=== PATIENT | female | born 1960 | race Caucasian/White ===

== ENCOUNTER 2018-01-26 19:01 | Emergency (ER) | payer BC ==
[2018-01-26] MEDS: ONDANSETRON 4 MG ORAL DISINTEGRATING TAB (Q0162 PER 1MG) PO (20:30)
== END 2018-01-26 20:33 | disposition home or self-care (01) ==
LOC: M ED 19:01
DX: K52.9 Noninfective gastroenteritis and colitis, unspecified (principal)
CPT/HCPCS: Q0162

== ENCOUNTER → 2018-01-26 | Outpatient (CLI) | payer BC ==
[~2018-01-26] MED LIST: GASTROGRAFIN SOLUTION 30ML (Q9963) As Ordered; ISOVUE-370 76% 100ML VIAL (Q9967) As Ordered
== END ==
LOC: M RAD 15:30
DX: R10.31 Right lower quadrant pain (principal); R53.83 Other fatigue
CPT/HCPCS: Q9963

== ENCOUNTER → 2018-01-26 | Outpatient (REF) | payer BC ==
[2018-01-26 16:36] LABS: BASO % 0.3 % (0.0-1.0); EOS # 0.1 10^3/uL (0.0-0.50); EOS % 0.7 % (0.0-3.0); HEMATOCRIT 39.5 % (36.0-47.0); HEMOGLOBIN 13.2 g/dl (12.0-15.5); IMMATURE GRANULOCYTE % 0.3 % (0-3.0); LYMPH # 1.4 10^3/uL (1.5-4.5); LYMPH % 11.7 % (24.0-44.0); MEAN CORPUSCULAR HGB CONC 33.4 g/dl (32.0-36.5); MEAN CORPUSCULAR VOLUME 86.8 fl (80.0-96.0); MONO # 0.5 10^3/uL (0.0-0.8); MONO % 4.6 % (0.0-5.0); NEUTROPHILS # 9.6 10^3/uL (1.8-7.7); NEUTROPHILS % 82.4 % (36.0-66.0); PLATELET COUNT, AUTOMATED 201 10^3/uL (150-450); RED BLOOD COUNT 4.55 10^6/uL (4.00-5.40); RED CELL DISTRIBUTION WIDTH 12.5 % (11.5-14.5); WHITE BLOOD COUNT 11.7 10^3/uL (4.0-10.0)
[2018-01-26 17:46] LABS: TOTAL 25(OH) VITAMIN D 13.8 NG/ML (30.0-100.0)
[2018-01-26 17:47] LABS: FOLATE 19.5 NG/ML; VITAMIN B12 LEVEL 825 PG/ML
[2018-01-26 17:51] LABS: ALBUMIN 3.9 GM/DL (3.2-5.2); ALKALINE PHOSPHATASE 101 U/L (45-117); ALT/SGPT 39 U/L (12-78); ANION GAP 9 MEQ/L (8-16); AST/SGOT 26 U/L (7-37); BILIRUBIN,TOTAL 0.5 MG/DL (0.2-1.0); BLOOD UREA NITROGEN 11 MG/DL (7-18); CALCIUM LEVEL 8.4 MG/DL (8.5-10.1); CARBON DIOXIDE LEVEL 26 MEQ/L (21-32); CHLORIDE LEVEL 104 MEQ/L (98-107); CHOLESTEROL LEVEL 187 MG/DL (<200); CHOLESTEROL RISK RATIO 3.016 (<5); CREATININE FOR GFR 0.74 MG/DL (0.55-1.30); GLOMERULAR FILTRATION RATE > 60.0 (>51); GLUCOSE, FASTING 81 MG/DL (70-100); HDL CHOLESTEROL 62 MG/DL (>40); LDL CHOLESTEROL 96.4 MG/DL (<100); LIPASE 231 U/L (73-393); NON-HDL-C 125 MG/DL; POTASSIUM SERUM 4.3 MEQ/L (3.5-5.1); SODIUM LEVEL 139 MEQ/L (136-145); THYROID STIMULATING HORMONE 0.517 uIU/ML (0.358-3.740); TOTAL PROTEIN 7.8 GM/DL (6.4-8.2); TRIGLYCERIDES LEVEL 143 MG/DL (<150)
== END ==
LOC: M SFHCCAPE 13:32
DX: R53.83 Other fatigue (principal); R10.84 Generalized abdominal pain; Z13.6 Encounter for screening for cardiovascular disorders

== ENCOUNTER → 2018-02-02 | Outpatient (CLI) | payer BC ==
[2018-02-02 17:38] LABS: FREE T4 0.95 NG/DL (0.76-1.46)
== END ==
LOC: M LAB 16:39
DX: R53.1 Weakness (principal)
CPT/HCPCS: 84443

== ENCOUNTER → 2018-02-24 | Day surgery (SDC) | payer BC ==
[~2018-02-24] MED LIST changes: -GASTROGRAFIN SOLUTION 30ML (Q9963) As Ordered; -ISOVUE-370 76% 100ML VIAL (Q9967) As Ordered; +LIDOCAINE 2% MDV 20 ML VIAL As Ordered; +PROPOFOL 200 MG/20 ML VIAL As Ordered
[2018-02-24] MEDS: NS 1,000 ML IV (11:53)
== END | disposition home or self-care (01) ==
LOC: M OPP 11:24
DX: K51.50 Left sided colitis without complications (principal); R10.31 Right lower quadrant pain; K62.1 Rectal polyp; R19.7 Diarrhea, unspecified; K59.00 Constipation, unspecified; R06.83 Snoring; R06.00 Dyspnea, unspecified; R63.0 Anorexia; Z78.0 Asymptomatic menopausal state; Z79.899 Other long term (current) drug therapy
CPT/HCPCS: 45385

== ENCOUNTER → 2018-11-11 | Outpatient (REF) | payer BC ==
[~2018-11-11] MED LIST changes: +ALLE24TA7 PO; -LIDOCAINE 2% MDV 20 ML VIAL As Ordered; -PROPOFOL 200 MG/20 ML VIAL As Ordered; +ZOFR4TAB14 PO
== END ==
LOC: M SFHCCAPE 11:54
PROVIDERS: ATTEND Physician Assistant
DX: Z53.9 Procedure and treatment not carried out, unspecified reason (principal); R10.9 Unspecified abdominal pain

== ENCOUNTER → 2018-11-11 | Outpatient (CLI) | payer BC ==
[~2018-11-11] MED LIST changes: +GASTROGRAFIN SOLUTION 30ML (Q9963) As Ordered ONE; +ISOVUE-370 76% 100ML VIAL (Q9967) As Ordered ONE
[2018-11-11 13:49] LABS: BASO % 0.9 % (0.0-1.0); EOS % 0.9 % (0.0-3.0); HEMATOCRIT 42.2 % (36.0-47.0); LYMPH # 1.1 10^3/uL (1.5-4.5); LYMPH % 31.3 % (24.0-44.0); MEAN CORPUSCULAR HGB CONC 33.2 g/dl (32.0-36.5); MEAN CORPUSCULAR VOLUME 87.6 fl (80.0-96.0); MONO # 0.6 10^3/uL (0.0-0.8); MONO % 17.8 % (0.0-5.0); NEUTROPHILS # 1.7 10^3/uL (1.8-7.7); NEUTROPHILS % 49.1 % (36.0-66.0); PLATELET COUNT, AUTOMATED 162 10^3/uL (150-450); RED BLOOD COUNT 4.82 10^6/uL (4.00-5.40); WHITE BLOOD COUNT 3.4 10^3/uL (4.0-10.0)
[2018-11-11 13:51] LABS: APPEARANCE, URINE CLOUDY (CLEAR); BACTERIA, URINE AUTO NEGATIVE (NEGATIVE); BILIRUBIN, URINE AUTO NEGATIVE (NEGATIVE); BLOOD, URINE BLOOD NEGATIVE (NEGATIVE); COLOR, URINE YELLOW (YELLOW); GLUCOSE, URINE (UA) AUTO NEGATIVE (NEGATIVE); KETONE, URINE AUTO 1+ mg/dL (NEGATIVE); LEUKOCYTE ESTERASE, URINE AUTO TRACE (NEGATIVE); MUCUS, URINE SMALL (NEGATIVE); NITRITE, URINE AUTO NEGATIVE (NEGATIVE); PROTEIN, URINE AUTO NEGATIVE (NEGATIVE); RBC, URINE AUTO 1 /HPF (0-3); SPECIFIC GRAVITY URINE AUTO 1.027 (1.002-1.035); SQUAMOUS EPITHELIAL CELL UR AU 13 /HPF (0-6); TRANSITIONAL EPITHELIAL AUTO 1 /HPF; UROBILINOGEN, URINE AUTO 0.2 mg/dL (0.0-2.0); WBC, URINE AUTO 8 /HPF (0-3)
[2018-11-11 14:13] LABS: ALBUMIN 3.8 GM/DL (3.2-5.2); ALT/SGPT 38 U/L (12-78); BILIRUBIN,TOTAL 0.4 MG/DL (0.2-1.0); BLOOD UREA NITROGEN 16 MG/DL (7-18); CALCIUM LEVEL 9.1 MG/DL (8.5-10.1); CARBON DIOXIDE LEVEL 29 MEQ/L (21-32); CHLORIDE LEVEL 104 MEQ/L (98-107); CREATININE FOR GFR 0.84 MG/DL (0.55-1.30); GLOMERULAR FILTRATION RATE > 60.0 (>51); GLUCOSE, FASTING 91 MG/DL (70-100); LIPASE 220 U/L (73-393); POTASSIUM SERUM 3.9 MEQ/L (3.5-5.1); SODIUM LEVEL 136 MEQ/L (136-145); TOTAL PROTEIN 8.1 GM/DL (6.4-8.2)
--- NOTE | 2018-11-11 16:15 | REP ---
CT of the abdomen pelvis without IV or bowel contrast: Comparison is 01/26/2018. There is minor atelectasis in the visualized lower lobe of the right lung. The liver, gallbladder, pancreas, spleen, adrenals, kidneys, and abdominal aorta are unremarkable. There is no adenopathy, mass or ascites. There is no bowel distension or obstruction. The Pelvis: The appendix is unremarkable. The uterus and adnexa are unremarkable. Bladder is unremarkable. The pelvic bowel loops are unremarkable. Impression: Essentially negative CT scan of the abdomen and pelvis except for minor atelectasis in the lower lobe of the right lung. Electronically Signed by Adan Ram MD 11/11/2018 04:07 P
== END ==
LOC: M LAB 13:13
PROVIDERS: ATTEND Physician Assistant
DX: R10.9 Unspecified abdominal pain (principal); J98.11 Atelectasis
CPT/HCPCS: 74177; 80053; 81001; 83690; 85025; 87086; Q9963; Q9967

== ENCOUNTER 2019-01-14 09:17 | Day surgery (SDC) | payer BC ==
[~2019-01-14] VITALS: Ht 165.1 cm; Wt 83.9 kg
[~2019-01-14 09:17] MED LIST changes: -GASTROGRAFIN SOLUTION 30ML (Q9963) As Ordered ONE; -ISOVUE-370 76% 100ML VIAL (Q9967) As Ordered ONE; +NS 1,000 ML IV ONE
[2019-01-14] MEDS ORDERED: LIDOCAINE 2% INJ 100 MG/5 ML SDV (FOR ANES.) As Ordered ONE (10:19)
[2019-01-14] MEDS ORDERED: PROPOFOL 200 MG/20 ML VIAL As Ordered ONE (10:19)
[2019-01-14] MEDS ORDERED: fentaNYL 100 MCG/2 ML INJECTION (J3010) As Ordered ONE (10:21)
--- NOTE | 2019-01-14 11:19 | ROOR ---
Patient Name: Cassie Medina Procedure Date: 01/14/2019 10:49 AM Date of : 1960 Age: 58 Room: [facility] Gender: Female Note Status: Finalized Procedure: Upper GI endoscopy Indications: Dyspepsia, Dysphagia Providers: Maximiliano Dias MD Referring MD: SHADY Shabazz [id number] Requesting Provider: Medicines: Monitored Anesthesia Care Complications: No immediate complications. Procedure: Pre-Anesthesia Assessment: - Prior to the procedure, a History and Physical was performed, and patient medications and allergies were reviewed. The patient is competent. The risks and benefits of the procedure and the sedation options and risks were discussed with the patient. All questions were answered and informed consent was obtained. Patient identification and proposed procedure were verified by the physician, the nurse and the anesthesiologist in the procedure room. Mental Status Examination: alert and oriented. Airway Examination: normal oropharyngeal airway and neck mobility. Respiratory Examination: clear to auscultation. CV Examination: normal. Prophylactic Antibiotics: The patient does not require prophylactic antibiotics. Prior Anticoagulants: The patient has taken no previous anticoagulant or antiplatelet agents. ASA Grade Assessment: II - A patient with mild systemic disease. After reviewing the risks and benefits, the patient was deemed in satisfactory condition to undergo the procedure. The anesthesia plan was to use monitored anesthesia care (MAC). Immediately prior to administration of medications, the patient was re-assessed for adequacy to receive sedatives. The heart rate, respiratory rate, oxygen saturations, blood pressure, adequacy of pulmonary ventilation, and response to care were monitored throughout the procedure. The physical status of the patient was re-assessed after the procedure. The Endoscope was introduced through the mouth, and advanced to the second part of duodenum. The upper GI endoscopy was accomplished without difficulty. The patient tolerated the procedure well. Findings: The examined esophagus was normal. Biopsies were obtained from the proximal and distal esophagus with cold forceps for histology of suspected eosinophilic esophagitis. Verification of patient identification for the specimen was done by the physician and nurse using the patient's name, date and medical record number. Estimated blood loss was minimal. Scattered moderate inflammation characterized by erythema and granularity was found in the gastric body and in the gastric antrum. Biopsies were taken with a cold forceps for Helicobacter pylori testing. The duodenal bulb and second portion of the duodenum were normal. Biopsies for histology were taken with a cold forceps for evaluation of celiac disease. Impression: - Normal esophagus. Biopsied. - Gastritis. Biopsied. - Normal duodenal bulb and second portion of the duodenum. Biopsied. Recommendation: - Patient has a contact number available for emergencies. The signs and symptoms of potential delayed complications were discussed with the patient. Return to normal activities tomorrow. Written discharge instructions were provided to the patient. - Resume previous diet. - Use Prilosec (omeprazole) 40 mg PO daily for 6 weeks. - Await pathology results. - Telephone GI clinic for pathology results in 1 week. - Return to primary care physician as previously scheduled. Maximiliano Dias MD Maximiliano Dias MD 01/14/2019 11:18:17 AM Electronically signed by Maximiliano Dias MD Number of Addenda: 0 Note Initiated On: 01/14/2019 10:49 AM Estimated Blood Loss: Estimated blood loss was minimal.
[2019-01-14 11:20] VITALS: BP 135/82
== END 2019-01-14 11:33 | disposition home or self-care (01) ==
LOC: M OPP 09:17
PROVIDERS: ATTEND Internal Medicine Gastroenterology
DX: K29.70 Gastritis, unspecified, without bleeding (principal); R13.10 Dysphagia, unspecified; R10.13 Epigastric pain
CPT/HCPCS: 43239; 88305; J3010

== ENCOUNTER 2019-01-21 07:24 | Day surgery (SDC) | payer BC ==
[~2019-01-21] VITALS: Ht 165.1 cm; Wt 84.8 kg
[~2019-01-21 07:24] MED LIST changes: +LR 1,000 ML IV ONE; -NS 1,000 ML IV ONE
[2019-01-21] MEDS ORDERED: PRIL20TA2 PO (07:55)
[2019-01-21 07:59] LABS: HEMATOCRIT 40.1 % (36.0-47.0); HEMOGLOBIN 13.5 g/dl (12.0-15.5); MEAN CORPUSCULAR HEMOGLOBIN 30.3 pg (27.0-33.0); MEAN CORPUSCULAR HGB CONC 33.7 g/dl (32.0-36.5); MEAN CORPUSCULAR VOLUME 89.9 fl (80.0-96.0); PLATELET COUNT, AUTOMATED 178 10^3/uL (150-450); RED BLOOD COUNT 4.46 10^6/uL (4.00-5.40); WHITE BLOOD COUNT 5.2 10^3/uL (4.0-10.0)
[2019-01-21] MEDS ORDERED: PROPOFOL 200 MG/20 ML VIAL As Ordered ONE (08:00)
[2019-01-21] MEDS ORDERED: MIDAZOLAM INJ 2 MG/2 ML VIAL (J2250) As Ordered ONE (08:00)
[2019-01-21] MEDS ORDERED: fentaNYL 250 MCG/5 ML INJECTION (J3010) As Ordered ONE (08:00)
[2019-01-21] MEDS ORDERED: LIDOCAINE 2% INJ 100 MG/5 ML SDV (FOR ANES.) As Ordered ONE (08:01)
[2019-01-21] MEDS ORDERED: ROCURONIUM BROMIDE 50 MG/5 ML VIAL As Ordered ONE (08:01)
[2019-01-21] MEDS ORDERED: KETOROLAC 60 MG/2 ML VIAL (J1885) As Ordered ONE (08:01)
[2019-01-21] MEDS ORDERED: dexameTHASONE 4 MG/ML 1ML VIAL (J1100) As Ordered ONE (08:01)
[2019-01-21] MEDS ORDERED: ONDANSETRON 4MG/2ML VIAL (J2405) As Ordered ONE (08:01)
[2019-01-21] MEDS ORDERED: SUGAMMADEX SODIUM 500 MG/5 ML VIAL (BRIDION) As Ordered ONE (08:01)
[2019-01-21] MEDS ORDERED: BUPIVACAINE/EPIN 0.25% 30 ML VIAL As Ordered ONE (08:04)
[2019-01-21 08:15] LABS: BLOOD UREA NITROGEN 13 MG/DL (7-18); CALCIUM LEVEL 8.9 MG/DL (8.5-10.1); CARBON DIOXIDE LEVEL 31 MEQ/L (21-32); CHLORIDE LEVEL 107 MEQ/L (98-107); CREATININE FOR GFR 0.82 MG/DL (0.55-1.30); GLOMERULAR FILTRATION RATE > 60.0 (>51); GLUCOSE, FASTING 99 MG/DL (70-100); POTASSIUM SERUM 4.3 MEQ/L (3.5-5.1); SODIUM LEVEL 141 MEQ/L (136-145)
[2019-01-21] MEDS ORDERED: MEPERIDINE INJ 25 MG/ML VIAL (J2175) As Ordered ONE (10:14)
[2019-01-21] MEDS ORDERED: MEPERIDINE INJ 25 MG/ML VIAL (J2175) IV ONE ×3 (10:30→12:45)
[2019-01-21] MEDS ORDERED: fentaNYL 100 MCG/2 ML INJECTION (J3010) IV PRN (10:30)
[2019-01-21] MEDS ORDERED: ONDANSETRON 4MG/2ML VIAL (J2405) IV PRN (10:30)
[2019-01-21] MEDS ORDERED: LR 1,000 ML IV SCH (10:30)
[2019-01-21] MEDS ORDERED: oxyCODONE 5MG TAB PO PRN (10:30)
[2019-01-21] MEDS ORDERED: NORCO, ANEXSIA 5/325MG TABLET (HYDROcodone/ACETAMINOPHEN) PO PRN (10:30)
[2019-01-21] MEDS ORDERED: ACETAMINOPHEN 1000MG 100ML IV BTL (OFIRMEV) (J0131 PER 10MG) As Ordered ONE (10:49)
[2019-01-21 13:44] VITALS: BP 112/66
--- NOTE | 2019-01-22 16:55 | ECGEPIP ---
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
--- NOTE | 2019-01-24 09:08 | RO ---
DATE OF PROCEDURE: 01/21/2019 PREOPERATIVE DIAGNOSIS: Biliary dyskinesia. POSTOPERATIVE DIAGNOSIS: Biliary dyskinesia. PROCEDURE: Laparoscopic cholecystectomy. SURGEON: Dr. Adan Sosa. SOLAR APPLICATIONS DEVELOPMENT ENGINEER: None. ANESTHESIA: General. ESTIMATED BLOOD LOSS: 5. COMPLICATIONS: None. INDICATIONS FOR PROCEDURE: The patient is a 58-year-old female who presents with right upper quadrant abdominal pain found have a biliary dyskinesia. Recommendation is to proceed with laparoscopic possible open cholecystectomy. Risks and benefits of the procedure not limited to but including bleeding, infection, hernia formation, damage to surrounding structures, need for further surgery were discussed in detail with the patient. Informed was obtained and procedure was planned. PROCEDURE: The patient was brought back to operating room six. After sufficient sedation, the abdomen was sterilely prepped and draped. Next time-out was done. Following that, a stab incision was made in the left lower quadrant. Veress needle was inserted and the abdomen was insufflated to 15 mmHg. Next the 5 mm supraumbilical incision was made and a 5 mm OptiView port was used to gain access to the abdomen. Once the abdomen was entered, Veress needle site was examined. There were no signs of any injury. Veress needle was then removed, An 11 mm port was placed subxiphoid just to the left of midline followed by two 5 mm ports in the right upper quadrant. Fundus of the gallbladder was elevated up towards the right shoulder. Cystic duct and cystic artery were carefully dissected free using combination of blunt and sharp dissection. Once they were both clearly identified, they were both doubly clipped and cut. The gallbladder was then removed from gallbladder fossa using electrocautery and brought out through the subxiphoid port site in a 10 mm EndoCatch bag. The right upper quadrant was examined to confirm hemostasis. The abdomen was then desufflated. Skin incision closed with #4-0 Vicryl subcuticular sutures. The abdomen was cleaned and dried. Steri-Strips, 4x4 and tape were applied thus ending procedure.
== END 2019-01-21 14:10 | disposition home or self-care (01) ==
LOC: M SDC 07:24
PROVIDERS: ATTEND Surgery
DX: K81.1 Chronic cholecystitis (principal); K21.9 Gastro-esophageal reflux disease without esophagitis
CPT/HCPCS: 36415; 47562; 80048; 85027; 88304; 93005; J0131; J1100; J1885; J2175; J2250; J2405; J3010

== ENCOUNTER → 2019-12-09 | Outpatient (REF) | payer BC ==
[~2019-12-09] MED LIST changes: -LR 1,000 ML IV ONE; +PRIL20TA2 PO
[2019-12-09 11:41] LABS: BASO # 0.1 10^3/uL (0.0-0.2); BASO % 0.9 % (0.0-1.0); EOS # 0.2 10^3/uL (0.0-0.5); EOS % 4.4 % (0.0-3.0); HEMOGLOBIN 13.5 g/dl (12.0-15.5); LYMPH # 1.9 10^3/uL (1.5-5.0); LYMPH % 34.3 % (24.0-44.0); MEAN CORPUSCULAR HEMOGLOBIN 28.6 pg (27.0-33.0); MEAN CORPUSCULAR HGB CONC 32.1 g/dl (32.0-36.5); MONO # 0.4 10^3/uL (0.0-0.8); MONO % 7.9 % (0.0-5.0); NEUTROPHILS # 2.8 10^3/uL (1.5-8.5); NEUTROPHILS % 52.1 % (36.0-66.0); PLATELET COUNT, AUTOMATED 204 10^3/uL (150-450); RED BLOOD COUNT 4.72 10^6/uL (4.00-5.40); WHITE BLOOD COUNT 5.4 10^3/uL (4.0-10.0)
[2019-12-09 12:52] LABS: ALBUMIN 3.8 GM/DL (3.2-5.2); ALT/SGPT 58 U/L (12-78); BILIRUBIN,TOTAL 0.4 MG/DL (0.2-1.0); BLOOD UREA NITROGEN 16 MG/DL (7-18); CALCIUM LEVEL 9.2 MG/DL (8.5-10.1); CARBON DIOXIDE LEVEL 29 MEQ/L (21-32); CHLORIDE LEVEL 107 MEQ/L (98-107); CHOLESTEROL LEVEL 211 MG/DL (<200); CHOLESTEROL RISK RATIO 3.196 (<5); CREATININE FOR GFR 0.74 MG/DL (0.55-1.30); GLOMERULAR FILTRATION RATE > 60.0 (>51); GLUCOSE, FASTING 98 MG/DL (70-100); HDL CHOLESTEROL 66 MG/DL (>40); LDL CHOLESTEROL 119 MG/DL (<100); NON-HDL-C 145 MG/DL; SODIUM LEVEL 141 MEQ/L (136-145); TOTAL 25(OH) VITAMIN D 21.3 NG/ML (30.0-100.0); TOTAL PROTEIN 7.7 GM/DL (6.4-8.2); TRIGLYCERIDES LEVEL 129 MG/DL (<150)
== END ==
LOC: M SFHCCLAY 08:35
PROVIDERS: ATTEND Physician Assistant
DX: Z00.00 Encounter for general adult medical examination without abnormal findings (principal)

== ENCOUNTER → 2019-12-16 | Outpatient (CLI) | payer BC ==
--- NOTE | 2019-12-16 14:52 | REP ---
LUMBOSACRAL SPINE: Five views lumbosacral spine are performed. There is no compression fracture. There is minimal anterior listhesis of L4 on L5 due to posterior facet arthropathy. There is mild spurring diffusely. There is moderate disc space narrowing with subchondral sclerosis and vacuum phenomenon at L5-S1. There is moderate spurring and sclerosis at the posterior facets of L4-5 and L5-S1. The posterior elements are intact. There is mild curvature toward the right. Metallic clips are seen in the right upper quadrant. IMPRESSION: Degenerative changes as above, most significantly at the L5-S1 level. Electronically Signed by Adan Small MD 12/16/2019 02:53 P
== END ==
LOC: M CLY 13:11
PROVIDERS: ATTEND Physician Assistant
DX: M54.42 Lumbago with sciatica, left side (principal)

== ENCOUNTER 2020-02-26 15:47 | Emergency (ER) | payer BC, OTHER ==
[2020-02-26] MEDS ORDERED: RABIES VACCINE HUMAN 2.5 INTERNATIONAL UNITS/ML VIAL (90675) As Ordered ONE (16:17)
== END 2020-02-26 16:26 | disposition home or self-care (01) ==
LOC: M ED 15:47
DX: Z23 Encounter for immunization (principal); Z20.3 Contact with and (suspected) exposure to rabies; E11.9 Type 2 diabetes mellitus without complications

== ENCOUNTER 2020-03-01 13:53 | Emergency (ER) | payer BC, OTHER ==
[2020-03-01] MEDS ORDERED: RABIES VACCINE HUMAN 2.5 INTERNATIONAL UNITS/ML VIAL (90675) As Ordered ONE (14:39)
[2020-03-05] MEDS ORDERED: GABAPENTIN 300 MG CAP ONE (21:00)
[2020-03-05] MEDS ORDERED: GABAPENTIN 300 MG CAP As Ordered ONE (21:08)
== END 2020-03-01 14:09 | disposition home or self-care (01) ==
LOC: M ED 13:53
DX: Z20.3 Contact with and (suspected) exposure to rabies (principal); Z23 Encounter for immunization; J30.2 Other seasonal allergic rhinitis

== ENCOUNTER 2020-03-08 17:57 | Emergency (ER) | payer BC, OTHER ==
[2020-03-08] MEDS ORDERED: RABIES VACCINE HUMAN 2.5 INTERNATIONAL UNITS/ML VIAL (90675) As Ordered ONE (19:16)
[2020-03-08] MEDS ORDERED: RABIES VACCINE HUMAN 2.5 INTERNATIONAL UNITS/ML VIAL (90675) ONE (19:16)
== END 2020-03-08 19:50 | disposition home or self-care (01) ==
LOC: M ED 17:57
DX: Z23 Encounter for immunization (principal); Z20.3 Contact with and (suspected) exposure to rabies; E11.29 Type 2 diabetes mellitus with other diabetic kidney complication; Z79.899 Other long term (current) drug therapy

== ENCOUNTER → 2020-07-09 | Outpatient (CLI) | payer SELFPAY | LOC: M LABSMTC 18:29 | PROVIDERS: ATTEND Pediatrics | DX: Z20.828 Contact with and (suspected) exposure to other viral communicable diseases (principal) ==

== ENCOUNTER → 2020-11-12 | Outpatient (REF) | payer BC ==
[2020-11-12 17:15] LABS: ALBUMIN 3.9 GM/DL (3.2-5.2); ALT/SGPT 50 U/L (12-78); BILIRUBIN,TOTAL 0.4 MG/DL (0.2-1.0); BLOOD UREA NITROGEN 13 MG/DL (7-18); CALCIUM LEVEL 9.2 MG/DL (8.5-10.1); CARBON DIOXIDE LEVEL 28 MEQ/L (21-32); CHLORIDE LEVEL 106 MEQ/L (98-107); CHOLESTEROL LEVEL 225 MG/DL (<200); CHOLESTEROL RISK RATIO 3.358 (<5); CREATININE FOR GFR 0.81 MG/DL (0.55-1.30); GLOMERULAR FILTRATION RATE > 60.0 (>51); GLUCOSE, FASTING 100 MG/DL (70-100); HDL CHOLESTEROL 67 MG/DL (>40); LDL CHOLESTEROL 132 MG/DL (<100); NON-HDL-C 158 MG/DL; POTASSIUM SERUM 4.4 MEQ/L (3.5-5.1); SODIUM LEVEL 139 MEQ/L (136-145); TOTAL PROTEIN 7.3 GM/DL (6.4-8.2); TRIGLYCERIDES LEVEL 131 MG/DL (<150)
[2020-11-12 17:16] LABS: TOTAL 25(OH) VITAMIN D 22.6 NG/ML (30.0-100.0)
== END ==
LOC: M SFHCCAPE 07:18
PROVIDERS: ATTEND Physician Assistant
DX: I10 Essential (primary) hypertension (principal); E55.9 Vitamin D deficiency, unspecified

== ENCOUNTER → 2020-12-11 | Outpatient (REF) | payer BC ==
[2020-12-11 11:42] LABS: BASO # 0.1 10^3/uL (0.0-0.2); BASO % 0.9 % (0.0-1.0); EOS # 0.2 10^3/uL (0.0-0.5); EOS % 3.9 % (0.0-3.0); HEMATOCRIT 40.4 % (36.0-47.0); HEMOGLOBIN 13.3 g/dl (12.0-15.5); LYMPH # 1.7 10^3/uL (1.5-5.0); MEAN CORPUSCULAR HEMOGLOBIN 29.4 pg (27.0-33.0); MEAN CORPUSCULAR HGB CONC 32.9 g/dl (32.0-36.5); MEAN CORPUSCULAR VOLUME 89.2 fl (80.0-96.0); MONO # 0.4 10^3/uL (0.0-0.8); MONO % 8.2 % (2.0-8.0); NEUTROPHILS % 55.8 % (36.0-66.0); PLATELET COUNT, AUTOMATED 192 10^3/uL (150-450); RED BLOOD COUNT 4.53 10^6/uL (4.00-5.40); WHITE BLOOD COUNT 5.4 10^3/uL (4.0-10.0)
[2020-12-11 12:22] LABS: THYROID STIMULATING HORMONE 2.64 uIU/ML (0.358-3.740); TOTAL 25(OH) VITAMIN D 19.8 NG/ML (30.0-100.0)
[2020-12-11 12:47] LABS: HEMOGLOBIN A1c 5.6 %
== END ==
LOC: M SFHCCLAY 07:21
PROVIDERS: ATTEND Physician Assistant
DX: E55.9 Vitamin D deficiency, unspecified (principal); R40.0 Somnolence

== ENCOUNTER → 2020-12-18 | Outpatient (REF) | payer BC | LOC: M SFHCWAGY 12:49 | PROVIDERS: ATTEND Advanced Practice Midwife | DX: Z12.4 Encounter for screening for malignant neoplasm of cervix (principal) | CPT/HCPCS: 87624; G0123 ==

== ENCOUNTER → 2021-01-02 | Outpatient (CLI) | payer BC ==
--- NOTE | 2021-01-02 08:45 | REP ---
INDICATION: Z12.31 SCREENING MAMMO. COMPARISON: None TECHNIQUE: Digital screening mammography was obtained bilaterally in the CC and MLO projections using both 2D and 3D modalities. Today's examination is initial screening examination. By history, the patient has no complaints of a palpable breast abnormality or other significant breast complaints.. FINDINGS: The breasts are symmetric in size and shape. Dense heterogenous nodular fibroglandular elements are seen bilaterally which decreases the sensitivity of the mammogram in detecting cancer. In the left breast there are 2 nodular like densities. One is near the 12 o'clock position while the other is in the lower outer quadrant. Benign calcifications are seen bilaterally. There is no evidence of internal architectural distortion, skin thickening, or nipple retraction. No other suspicious features are seen in either breast. The Volpara volumetric breast density pattern is b. IMPRESSION: There are 2 left breast densities as described above and for which diagnostic digital magnified spot compression views are recommended in the CC and MLO projections along with diagnostic ultrasonography if necessary. ACR category 0 mammogram. M0 letter ACR category 0 Autumn 13.8 RECOMMENDATION: As above <Electronically signed by Kingsley Abdul > 01/02/21 0823
== END ==
LOC: M WHC 07:28
PROVIDERS: ATTEND Advanced Practice Midwife
DX: Z12.31 Encounter for screening mammogram for malignant neoplasm of breast (principal); R92.8 Other abnormal and inconclusive findings on diagnostic imaging of breast

== ENCOUNTER → 2021-01-16 | Outpatient (CLI) | payer BC ==
--- NOTE | 2021-01-16 16:50 | REP ---
INDICATION: ADDITIONAL VIEWS LT BREAST; ADDITIONAL VIEW LT BREAST. COMPARISON: 01/02/2021 baseline mammogram. TECHNIQUE: Additional spot compression views and tomographic sequences are obtained of the left breast. Whole left breast ultrasound performed. FINDINGS: Approximately 3 cm behind the nipple there is a fairly smoothly marginated nodule measuring about 6-7 mm in diameter. Somewhat more posteriorly, approximately 6 cm behind the nipple, there appears to be a smoothly marginated nodule approximately 6-7 mm in diameter. No other discrete nodule is identified in the left breast. Left breast ultrasound demonstrates a cluster of cysts approximately 2 cm from the nipple, at 5 o'clock, in total the cluster measures 9 x 6 x 10 mm. In the retroareolar region 2 simple cysts are seen measuring 6 mm and 5 mm in maximum diameter. No solid nodule is visualized sonographically. Elastography interrogation of these cysts demonstrate an average KP a value ranging between 13.0 and 19.0. IMPRESSION: BIRADS/ACR category 3, probably benign. Additional mammographic images demonstrate 2 smoothly marginated subcentimeter nodules as discussed in detail above. Ultrasound demonstrates simple cysts in the retroareolar region. No sonographic correlate is identified, however, for the nodule which located approximately 5-6 cm from the nipple. For this reason, as well as because of the dense nodular breast parenchymal pattern, I would recommend further evaluation with MRI of the breasts. This mammogram was interpreted with the aid of an FDA-approved computer-aided detection system. The patient letter being requested is M3. RECOMMENDATION: Recommend further evaluation with bilateral breast MRI. <Electronically signed by Adan Small > 01/16/21 [id number]
== END ==
LOC: M WHC 13:03
PROVIDERS: ATTEND Advanced Practice Midwife
DX: R92.8 Other abnormal and inconclusive findings on diagnostic imaging of breast (principal); N63.10 Unspecified lump in the right breast, unspecified quadrant; N60.12 Diffuse cystic mastopathy of left breast

== ENCOUNTER → 2021-01-26 | Outpatient (CLI) | payer BC ==
--- NOTE | 2021-01-29 14:14 | SLEEPCENT ---
NOCTURNAL POLYSOMNOGRAPHY DATE: 01/26/2021 ORDERED BY: Peggy Dougherty. Nocturnal polysomnography was performed for evaluation of sleep physiology in this patient with a history of excessive somnolence and nonrestorative sleep. 8 hours and 20 minute of data were reviewed. There were 412 minutes of sleep identified. Sleep latency was normal at 12 minutes. REM latency was prolonged at 305 minutes. Sleep architecture showed poor progression. There were 2 REM cycles late in the study. Overall sleep efficiency 84.3%. The electrocardiogram showed a sinus rhythm with frequent PVCs. Average heart rate was 75 beats per minute. EEG showed normal waveforms for awake and sleep. There were 616 respiratory events identified of 10 seconds in duration or greater for an apnea-hypopnea index of 89.7. The events were primarily obstructive. There were 12 mixed apneas. Respiratory events were not exclusive to sleep stage nor body posture. Arousals from respiratory events occurred 35 times per hour, and oxygen desaturations were seen into the 70s. There was some limb activity noted, but a limb movement arousal index was low. IMPRESSION: Very severe obstructive sleep apnea syndrome (G47.33), apnea-hypopnea index 89.7. RECOMMENDATION: The patient should be encouraged to return to [facility] at her earliest convenience for pressure therapy. In the interim, alcohol and sedative avoidance should be practiced, and caution exercised during the operation of motor vehicles. cc: ANGIE EVANS PA-C
== END ==
LOC: M SLEEP 20:00
PROVIDERS: ATTEND Nurse Practitioner Family
DX: G47.33 Obstructive sleep apnea (adult) (pediatric) (principal)

== ENCOUNTER → 2021-02-01 | Outpatient (CLI) | payer BC ==
[~2021-02-01] MED LIST changes: +E-Z-GAS II EFFERVESCENT PACKET (SODIUM BICARB./CITRIC ACID/SIMETHICONE) As Ordered ONE; +E-Z-HD 98% w/w 340GM SUSP BTL As Ordered ONE; +E-Z-PAQUE 96% w/w SUSP 176GM BTL As Ordered ONE
--- NOTE | 2021-02-05 13:41 | REP ---
INDICATION: DYSPHAGIA. COMPARISON: None. TECHNIQUE: This procedure was performed under the direct supervision of Dr. Corley. Images were reviewed with Dr. Corley. Liquid barium and gas producing granules were given in the erect position as well as liquid barium in the prone oblique positions in order to perform a double contrast esophagram examination. A combination of fluoroscopy, spot films and last image hold technology was utilized. 0.6 minutes of fluoro time was utilized for this procedure. FINDINGS: A single view PA chest x-ray is submitted as a artificial stone applicator film. The superior mediastinal structures are midline. The heart size is within normal limits. The lungs are clear. The oral and pharyngeal stages of deglutition are unremarkable. During esophageal transport there are tertiary waves demonstrated. There is no esophagitis, stricture, mucosal ring. There is a small sliding-type hiatal hernia.Gastroesophageal reflux is not demonstrated on this examination. IMPRESSION: 1. Tertiary waves. 2. There is a small sliding-type hiatal hernia. <Electronically signed by Jason Scales > 02/01/21 1432 <Electronically signed by Rafa Corley > 02/05/21 [id number]
== END ==
LOC: M RAD 09:01
PROVIDERS: ATTEND Physician Assistant Medical
DX: R13.10 Dysphagia, unspecified (principal); K44.9 Diaphragmatic hernia without obstruction or gangrene; K22.4 Dyskinesia of esophagus

== ENCOUNTER → 2021-02-22 | Outpatient (CLI) | payer BC ==
[~2021-02-22] MED LIST changes: +ALLE10TA62 PO; +D31000TA2 PO; -E-Z-GAS II EFFERVESCENT PACKET (SODIUM BICARB./CITRIC ACID/SIMETHICONE) As Ordered ONE; -E-Z-HD 98% w/w 340GM SUSP BTL As Ordered ONE; -E-Z-PAQUE 96% w/w SUSP 176GM BTL As Ordered ONE; +FLON1SPR NARES; +LISI-898; +OMEP-221; +PROHANCE 279.3MG/ML 15ML VIAL As Ordered ONE; +PROHANCE 279.3MG/ML 5ML VIAL As Ordered ONE
--- NOTE | 2021-02-22 15:00 | REP ---
INDICATION: ABN MAMMO, HIGH RISK FOR BREAST CA. COMPARISON: Comparison mammography and sonography January 16, 2021. TECHNIQUE: Three Vero MRI imaging was performed with a dedicated breast coil. Axial, coronal, and sagittal T1 and T2 weighted scans were obtained with and without fat saturation in the usual fashion. The study includes dynamically acquired post gadolinium-enhanced imaging with image subtraction. Maximum intensity projection and multi planar reformation imaging is included as well. This study is interpreted with the aid of [employer], an FDA approved computer aided detection (CAD) software program, on a dedicated breast MRI workstation. The gadolinium enhancement dose is 18 mL of intravenous ProHance. FINDINGS: There is a moderate amount of fibroglandular tissue bilaterally corresponding with the mammographic pattern. There is moderate background parenchymal enhancement. There is no evidence of axillary lymphadenopathy. There are multiple T2 hyperintense T1 hypointense cysts scattered throughout the breasts bilaterally, left more numerous than right. These are sub cm cyst. High-resolution pre and post-contrast T1 and T2 weighted scans show no suspicious morphologic abnormality in either breast. Dynamically acquired sequential postcontrast images show no suspicious area of enhancement and washout kinetics in either breast to suggest malignancy. Subtraction images show no additional abnormality. IMPRESSION: BI-RADS category 2 benign bilateral breast MRI findings. <Electronically signed by Rafa Corley > 02/22/21 [id number]
== END ==
LOC: M RAD 10:43
PROVIDERS: ATTEND Advanced Practice Midwife
DX: N60.11 Diffuse cystic mastopathy of right breast (principal); N60.12 Diffuse cystic mastopathy of left breast
CPT/HCPCS: A9576; C8908

== ENCOUNTER → 2021-02-27 | Outpatient (CLI) | payer BC ==
[~2021-02-27] MED LIST changes: -PROHANCE 279.3MG/ML 15ML VIAL As Ordered ONE; -PROHANCE 279.3MG/ML 5ML VIAL As Ordered ONE
== END ==
LOC: M LABSMTC 11:55
PROVIDERS: ATTEND Anesthesiology
DX: Z01.812 Encounter for preprocedural laboratory examination (principal); Z20.822 Contact with and (suspected) exposure to COVID-19

== ENCOUNTER 2021-03-04 09:32 | Day surgery (SDC) | payer BC ==
[~2021-03-04] VITALS: Ht 165.1 cm; Wt 91.2 kg
[~2021-03-04 09:32] MED LIST changes: -LISI-898; +LISI5TAB11; +NS 1,000 ML IV ONE; -OMEP-221; +OMEP40CA5
[2021-03-04] MEDS ORDERED: fentaNYL 100 MCG/2 ML INJECTION As Ordered ONE (10:31)
[2021-03-04] MEDS ORDERED: propofoL 500 MG/50 ML VIAL As Ordered ONE (10:31)
[2021-03-04] MEDS ORDERED: LIDOCAINE 2% 100MG/5ML SDV (FOR ANES.) As Ordered ONE (10:37)
[2021-03-04] MEDS ORDERED: propofoL 200 MG/20 ML VIAL As Ordered ONE (10:50)
[2021-03-04 11:22] VITALS: BP 122/69
== END 2021-03-04 11:31 | disposition home or self-care (01) ==
LOC: M OPP 09:32
PROVIDERS: ATTEND Internal Medicine Gastroenterology
DX: K63.5 Polyp of colon (principal); K64.8 Other hemorrhoids; K57.30 Diverticulosis of large intestine without perforation or abscess without bleeding; R19.4 Change in bowel habit; K22.8 Other specified diseases of esophagus; K29.70 Gastritis, unspecified, without bleeding; R13.10 Dysphagia, unspecified; R10.13 Epigastric pain; Z79.899 Other long term (current) drug therapy
CPT/HCPCS: 43239; 45385; 88305; J3010

== ENCOUNTER → 2021-03-07 | Outpatient (REF) | payer BC ==
[~2021-03-07] MED LIST changes: +LISI-898; -LISI5TAB11; -NS 1,000 ML IV ONE; +OMEP-221; -OMEP40CA5
== END ==
LOC: M WUC 11:38
PROVIDERS: ATTEND Physician Assistant
DX: N39.0 Urinary tract infection, site not specified (principal)

== ENCOUNTER → 2021-03-20 | Outpatient (CLI) | payer BC ==
--- NOTE | 2021-03-21 14:52 | SLEEPCENT ---
DATE: 03/20/2021 ORDERED BY: Peggy Dougherty Nocturnal polysomnography was performed for the titration of pressure therapy in this patient with obstructive sleep apnea syndrome, apnea-hypopnea index 89.7. For testing, a ResMed F30 full-face mask of medium size was used. There was 4 cm of water pressure applied to the circuit, and the lights were extinguished. There were 8 hours and 6 minutes of data reviewed. There was 386 minutes of sleep identified. Sleep latency was mildly prolonged at 24 minutes. REM latency was prolonged at 182 minutes. Sleep architecture improved once optimal pressure was achieved, and there were three REM cycles. Overall sleep efficiency 80%. The electrocardiogram showed sinus rhythm with premature ventricular contractions (PVCs). Average heart rate 68 beats per minute. EEG showed reasonably normal waveforms for wake and sleep. Respiratory events were best palliated with CPAP at a pressure of 10. Some minor limb activity noted early in the study became less so with optimal pressure therapy, and the limb movement arousal index on this occasion was 6.1. IMPRESSION: Obstructive sleep apnea syndrome (G47.33). RECOMMENDATION: Nightly use of pressure therapy, 10 cm of water.
== END ==
LOC: M SLEEP 20:00
PROVIDERS: ATTEND Nurse Practitioner Family
DX: G47.33 Obstructive sleep apnea (adult) (pediatric) (principal)

== ENCOUNTER → 2022-02-14 | Outpatient (CLI) | payer BC ==
[~2022-02-14] MED LIST changes: -D31000TA2 PO; -LISI-898; +LISI5TAB11; -OMEP-221; +OMEP40CA5; +VITA100093 PO
== END ==
LOC: M WHC 08:02
PROVIDERS: ATTEND Nurse Practitioner Women's Health
DX: R92.8 Other abnormal and inconclusive findings on diagnostic imaging of breast (principal); N60.12 Diffuse cystic mastopathy of left breast
CPT/HCPCS: 76642; 77066; G0279

== ENCOUNTER → 2023-07-06 | Outpatient (CLI) | payer BC | LOC: M WHC 07:53 | PROVIDERS: ATTEND Physician Assistant | DX: Z12.31 Encounter for screening mammogram for malignant neoplasm of breast (principal); R92.333 Mammographic heterogeneous density, bilateral breasts ==

== ENCOUNTER → 2023-07-09 | Outpatient (CLI) | payer BC ==
[2023-07-09 09:58] LABS: BASO # 0.1 10^3/uL (0.0-0.2); BASO % 1.1 % (0.0-1.0); EOS # 0.2 10^3/uL (0.0-0.5); EOS % 3.3 % (0.0-3.0); HEMATOCRIT 41.7 % (36.0-47.0); HEMOGLOBIN 13.5 g/dl (12.0-15.5); LYMPH # 1.9 10^3/uL (1.5-5.0); LYMPH % 34.2 % (24.0-44.0); MEAN CORPUSCULAR HEMOGLOBIN 29.3 pg (27.0-33.0); MEAN CORPUSCULAR HGB CONC 32.4 g/dl (32.0-36.5); MEAN CORPUSCULAR VOLUME 90.7 fl (80.0-96.0); MONO # 0.4 10^3/uL (0.0-0.8); MONO % 7.7 % (2.0-8.0); NEUTROPHILS # 2.9 10^3/uL (1.5-8.5); NEUTROPHILS % 53.3 % (36.0-66.0); PLATELET COUNT, AUTOMATED 187 10^3/uL (150-450); WHITE BLOOD COUNT 5.5 10^3/uL (4.0-10.0)
[2023-07-09 10:54] LABS: THYROID STIMULATING HORMONE 3.919 uIU/ML (0.55-4.78); TOTAL 25(OH) VITAMIN D 24.2 NG/ML (20.0-100.0)
[2023-07-09 11:02] LABS: ALBUMIN 3.3 G/DL (3.2-5.2); ALKALINE PHOSPHATASE 96 U/L (46-116); ALT/SGPT 35 U/L (7.0-40); AST/SGOT 24 U/L (<34); BILIRUBIN,TOTAL 0.8 MG/DL (0.3-1.2); BLOOD UREA NITROGEN 15 MG/DL (9-23); CALCIUM LEVEL 9.3 MG/DL (8.3-10.6); CARBON DIOXIDE LEVEL 29 MMOL/L (20-31); CHLORIDE LEVEL 106 MMOL/L (98-107); CHOLESTEROL LEVEL 210 MG/DL (<200); CHOLESTEROL RISK RATIO 3.44 (<5); CREATININE FOR GFR 0.76 MG/DL (0.55-1.30); GLOMERULAR FILTRATION RATE > 60.0 (>45); GLUCOSE, FASTING 97 MG/DL (74-106); LDL CHOLESTEROL 123.8 MG/DL (<100); POTASSIUM SERUM 4.9 MMOL/L (3.5-5.1); SODIUM LEVEL 141 MMOL/L (136-145); TOTAL PROTEIN 7.3 G/DL (5.7-8.2); TRIGLYCERIDES LEVEL 126 MG/DL (<150)
== END ==
LOC: M WUC 08:12
PROVIDERS: ATTEND Physician Assistant
DX: E55.9 Vitamin D deficiency, unspecified (principal); I10 Essential (primary) hypertension

== ENCOUNTER → 2023-07-23 | Outpatient (CLI) | payer BC | LOC: M WUC 11:32 | PROVIDERS: ATTEND Physician Assistant | DX: M25.561 Pain in right knee (principal) ==

== ENCOUNTER → 2023-09-08 | Outpatient (CLI) | payer BC | LOC: M RAD 08:54 | PROVIDERS: ATTEND Physician Assistant | DX: M25.561 Pain in right knee (principal); R22.41 Localized swelling, mass and lump, right lower limb; M71.21 Synovial cyst of popliteal space [Baker], right knee ==

== ENCOUNTER 2023-10-13 10:49 | Day surgery (SDC) | payer BC ==
[~2023-10-13] VITALS: Ht 165.1 cm; Wt 94.3 kg
[~2023-10-13 10:49] MED LIST changes: +CLAR10CA3 PO; +HYDR-643 PO; -LISI5TAB11; +LISI5TAB11 PO; +METH4PACK PO; +NAPR-885 PO; +PANT40TA29 PO; +VITA500030 PO
[2023-10-13] MEDS: NS 1,000 ML IV ONE (11:35)
[2023-10-13] MEDS ORDERED: LIDOCAINE 2% 100MG/5ML SDV (FOR ANES.) As Ordered ONE (13:21)
[2023-10-13] MEDS ORDERED: fentaNYL 100 MCG/2 ML INJECTION As Ordered ONE (13:21)
[2023-10-13] MEDS ORDERED: propofoL 200 MG/20 ML VIAL As Ordered ONE (13:21)
[2023-10-13 13:43] VITALS: TEMP 98.8
[2023-10-13 14:05] VITALS: BP 129/64; O2SAT 96
== END 2023-10-13 14:11 | disposition home or self-care (01) ==
LOC: M OPP 10:49
PROVIDERS: ATTEND Internal Medicine Gastroenterology
DX: K22.4 Dyskinesia of esophagus (principal); K22.89 Other specified disease of esophagus; K29.70 Gastritis, unspecified, without bleeding; R10.13 Epigastric pain; R13.10 Dysphagia, unspecified; G47.30 Sleep apnea, unspecified; Z99.89 Dependence on other enabling machines and devices; Z79.899 Other long term (current) drug therapy
CPT/HCPCS: 43239; 43249; 88305; J3010

== ENCOUNTER → 2025-02-15 | Outpatient (CLI) | payer BC | LOC: M SOG 07:10 | PROVIDERS: ATTEND Physician Assistant | DX: M25.562 Pain in left knee (principal) ==

== ENCOUNTER → 2025-03-10 | Outpatient (CLI) | payer BC | LOC: M RAD 06:37 | PROVIDERS: ATTEND Physician Assistant | DX: M25.562 Pain in left knee (principal); M25.462 Effusion, left knee; M71.22 Synovial cyst of popliteal space [Baker], left knee; S83.222A Peripheral tear of medial meniscus, current injury, left knee, initial encounter; X58.XXXA Exposure to other specified factors, initial encounter; Y92.9 Unspecified place or not applicable; Y93.9 Activity, unspecified; Y99.9 Unspecified external cause status ==

== ENCOUNTER 2025-07-19 06:51 | Day surgery (SDC) | payer BC ==
[~2025-07-19] VITALS: Ht 165.1 cm; Wt 96.5 kg
[~2025-07-19 06:51] MED LIST changes: +ACID10TA14 PO; +FEXO-63 PO; +LIVER DETOX; +MULTTAB61 PO; +PROBCAP2 PO; +[UNRECOGNIZED DRUG - CODE] PO
[2025-07-19 07:43] VITALS: TEMP 97.6
[2025-07-19 07:57] VITALS: BP 130/68; O2SAT 95
[2025-07-20] MEDS ORDERED: CEFUROXIME 1 MG/0.1 ML INTRACAMERAL INJ As Ordered ONE (06:49)
[2025-07-20] MEDS ORDERED: LIDOCAINE 1% SDV 5 ML VIAL As Ordered ONE (06:49)
[2025-07-20] MEDS ORDERED: BSS IRRIG/VANCO(10MG)/TOBRA(5MG)/EPINEPH(1:1000-0.5CC)500ML BAG-ORONLY As Ordered ONE (07:14)
== END 2025-07-19 08:06 | disposition home or self-care (01) ==
LOC: M OPP 06:51
PROVIDERS: ATTEND Surgery
DX: K57.30 Diverticulosis of large intestine without perforation or abscess without bleeding (principal); K64.0 First degree hemorrhoids; Z86.0100 Personal history of colon polyps, unspecified; G47.30 Sleep apnea, unspecified; Z79.51 Long term (current) use of inhaled steroids; Z79.899 Other long term (current) drug therapy; R55 Syncope and collapse; K91.89 Other postprocedural complications and disorders of digestive system; N20.0 Calculus of kidney; I10 Essential (primary) hypertension
CPT/HCPCS: 45378; 74177; 80048; 80076; 82550; 82553; 83690; 84443; 84484; 85025; 87486; 87581; 87633; 87798; 93005; 93041; 94760; 96365; 96375; 99285; J0134; J0697; J2765; Q9963; Q9967

== ENCOUNTER 2025-07-19 10:58 | Emergency (ER) | payer BC ==
[~2025-07-19] VITALS: Ht 165.1 cm; Wt 98.9 kg
[2025-07-19] MEDS ORDERED: ISOVUE-370 76% 100 ML VIAL As Ordered ONE (11:12)
[2025-07-19] MEDS ORDERED: MORPHINE 2 MG/ML 1 ML VIAL IV PRN (11:15)
[2025-07-19 11:22] LABS: BASO # 0.0 10^3/uL (0.0-0.2); BASO % 0.3 % (0.0-1.0); EOS # 0.1 10^3/uL (0.0-0.5); EOS % 1.2 % (0.0-3.0); LYMPH # 1.6 10^3/uL (1.5-5.0); LYMPH % 24.5 % (24.0-44.0); MONO # 0.3 10^3/uL (0.0-0.8); MONO % 4.9 % (2.0-8.0); NEUTROPHILS # 4.6 10^3/uL (1.5-8.5); NEUTROPHILS % 68.7 % (36.0-66.0); PLATELET COUNT, AUTOMATED 183 10^3/uL (150-450)
[2025-07-19] MEDS: GASTROGRAFIN SOLUTION 30ML PO SCH (11:31)
[2025-07-19 11:42] LABS: CK-MB VALUE MASS 2.0 NG/ML (<3.6)
[2025-07-19 11:44] LABS: CPK CREATINE PHOSPHOKINASE 94.0 U/L (34-145); MB/CK RELATIVE INDEX 2.12 (< OR =4)
[2025-07-19 11:45] LABS: CALCIUM LEVEL 8.3 MG/DL (8.3-10.6); CARBON DIOXIDE LEVEL 27.0 MMOL/L (20-31); CHLORIDE LEVEL 106.0 MMOL/L (98-107); CREATININE FOR GFR 0.83 MG/DL (0.55-1.30); GLOMERULAR FILTRATION RATE 79.7 (>45); POTASSIUM SERUM 4.3 MMOL/L (3.5-5.1); SODIUM LEVEL 141.0 MMOL/L (136-145)
[2025-07-19 13:14] LABS: ALT/SGPT 44.0 U/L (7.0-40); AST/SGOT 43.0 U/L (<34)
[2025-07-19 13:24] LABS: CK-MB VALUE MASS 1.9 NG/ML (<3.6)
[2025-07-19 13:25] LABS: CPK CREATINE PHOSPHOKINASE 94 U/L (34-145); MB/CK RELATIVE INDEX 2.02 (< OR =4)
[2025-07-19] MEDS: SIMETHICONE 80MG CHEW TAB PO STA (14:20)
[2025-07-19] MEDS: ACETAMINOPHEN *IV* 1,000 MG in IV 1 EA IV ONE (14:21)
[2025-07-19 16:08] VITALS: BP 124/70; TEMP 100.3; O2SAT 94
== END 2025-07-19 16:10 | disposition home or self-care (01) ==
LOC: EDBD 10:58 → M ED 12:06
DX: R55 Syncope and collapse (principal); K91.89 Other postprocedural complications and disorders of digestive system; N20.0 Calculus of kidney; I10 Essential (primary) hypertension; G47.30 Sleep apnea, unspecified; Z79.899 Other long term (current) drug therapy